=== PATIENT | female | born 1955 | race Caucasian/White ===

== ENCOUNTER 2017-09-11 17:26 | Inpatient (IN) | payer MEDICARE ==
[~2017-09-11] VITALS: Ht 162.6 cm; Wt 65.3 kg
--- NOTE | 2017-09-11 17:30 | NUR ---
[id number] FROM HOME: WAS WANDERING IN LOBBY, Hx OF CVA. BS IN FIELD 84, NAD NOTED, VSS, RESP EVEN AND UNLABORED, PT PUT ON HOSPITAL GOWN AND MONITOR. AAOX2, WITH PERIODS OF CONFUSION, WAITING FOR MD EARLY
[2017-09-11 17:51] LABS: BASOPHILS % (AUTO) 0.6 % (0.0-2.0); EOSINOPHILS # (AUTO) 0.2 /CMM (0.0-0.7); EOSINOPHILS % (AUTO) 3.1 % (0.0-6.0); HEMATOCRIT 42 % (33-45); HEMOGLOBIN 14.1 g/dL (11.5-14.8); LYMPHOCYTES # (AUTO) 1.1 /CMM (0.8-4.8); LYMPHOCYTES % (AUTO) 15.8 % (20.0-44.0); MEAN CORPUSCULAR HEMOGLOBIN 33 PG (26.0-33.0); MEAN CORPUSCULAR HGB CONC 34 g/dl (31.0-36.0); MEAN CORPUSCULAR VOLUME 98 fL (82-100); MONOCYTES # (AUTO) 0.3 /CMM (0.1-1.30); MONOCYTES % (AUTO) 4.4 % (2.0-12.0); NEUTROPHILS # (AUTO) 5.4 /CMM (1.8-8.9); NEUTROPHILS % (AUTO) 76.1 % (43.0-81.0); PLATELET COUNT (AUTO) 280 /CMM (150-450); RDW COEFFICIENT OF VARIATION 12.1 (11.5-15.0); RED BLOOD CELL COUNT(AUTO) 4.24 MIL/uL (4.0-5.2)
[2017-09-11] MEDS ORDERED: IV NS 0.9% 1,000 ML BAG IV ONE (18:00)
[2017-09-11 18:01] LABS: CALCIUM, SERUM 9.9 mg/dL (8.5-10.1); CARBON DIOXIDE 28 mmol/L (21-32); CHLORIDE 104 mmol/L (98-107); CREATININE 0.9 mg/dL (0.6-1.3); GLUCOSE 84 mg/dL (74-106); POTASSIUM 4.5 mmol/L (3.5-5.1); SODIUM SERUM 138 mmol/L (136-145); UREA NITROGEN, BLOOD 14 mg/dL (7-18)
[2017-09-11 18:05] LABS: INR 0.89 (0.87-1.13); PROTHROMBIN TIME 9.3 SECS (9.5-12.7)
[2017-09-11 18:07] LABS: ALANINE AMINOTRANSFERASE 41 U/L (12-78); ALBUMIN 4.1 g/dL (3.4-5.0); ALCOHOL, BLOOD 8 mg/dL (0-0); ALKALINE PHOSPHATASE 85 U/L (46-116); ASPARTATE AMINOTRANSFERASE 36 U/L (15-37); BILIRUBIN,DIRECT 0.2 mg/dL (0.0-0.2); BILIRUBIN,TOTAL 1.1 mg/dL (0.2-1.0); TOTAL PROTEIN, SERUM 7.4 g/dL (6.4-8.2)
[2017-09-11 18:09] LABS: TROPONIN I < 0.017 ng/mL (0.00-0.056)
--- NOTE | 2017-09-11 18:23 | NUR ---
PT TO CTSCAN
[2017-09-11 18:55] LABS: APPEARANCE,URINE Clear (CLEAR); BILIRUBIN,URINE Negative (NEGATIVE); BLOOD, URINE Negative Ery/uL (NEGATIVE); COLOR,URINE Yellow (YELLOW); KETONES,URINE Trace (NEGATIVE); LEUKOCYTE ESTERASE ,URINE Small (NEGATIVE); NITRITE, URINE Negative (NEGATIVE); PROTEIN,URINE Negative (NEGATIVE); UGLUCOSE Negative (NEGATIVE)
[2017-09-11 19:09] LABS: BACTERIA,URINE Few /HPF (None Seen); RBC,URINE 0-2 /HPF (0-2); SQUAMOUS EPITHELIAL CELL,UR Few /HPF (None Seen)
--- NOTE | 2017-09-11 19:18 | NUR ---
RECEIVED REPORT FROM JAYDA VERA FOR [facility]. PT APPEARS COMFORTABLE PT NOTED AOX3 WITH PERIODS OF CONFUSION.
--- NOTE | 2017-09-11 19:22 | NUR ---
CALLED FOR PSYCH
--- NOTE | 2017-09-11 19:25 | NUR ---
PINKY ETA: 1 HOUR
--- NOTE | 2017-09-11 20:18 | NUR ---
PINKY AT BEDSIDE FOR EVAL.
--- NOTE | 2017-09-11 21:08 | NUR ---
PT ASSIGNED TO [facility] 210-B
--- NOTE | 2017-09-11 21:10 | NUR ---
IV removed. Catheter intact and site benign. Pressure and 4x4 applied to site. No bleeding noted.
--- NOTE | 2017-09-11 21:11 | NUR ---
REPORT GIVEN TO JAYDA PAULINO FOR [facility]-B
--- NOTE | 2017-09-11 21:15 | NUR ---
ADMITTED A 62 Y/O FEMALE, , SINGLE, FROM HOME, ON 5150 HOLD, BASED ON HOLD, PATIENT WAS WANDERING IN THE LOBBY, CONFUSED, DISORGANIZED AND DO NOT REMEMBER HER APARTMENT. PATIENT HAS HX. OF BIPOLAR DISORDER. PATIENT ADMITTING DX. OF PSYCHOSIS AND HX. OF CVA. PATIENT ARRIVED VIA WHEELCHAIR AND ASSISTED BY THE ER STAFF. UPON FACE TO FACE EVALUATION, PATIENT APPEARED ALERT AND ORIENTED X 2, WITH CONFUSIONS AND FORGETFULNESS. PATIENT CALM, COOPERATIVE, DISORGANIZED AND CONFUSED. PATIENTS IS FULL CODE, AMBULATORY WITH UNSTEADY GAIT, NO SOB, NO ACUTE DISTRESS, BREATHING EVEN AND UNLABORED, NO S/S OF PAIN AND DISCOMFORT, BELONGINGS INSPECTED AND PLACED ON SAFE. NOTIFIED DR. EDMOND OF THE ADMISSION AND DR. JODI IBRAHIM TO RECONCILE MEDICATION. WILL CONTINUE TO MONITOR [id number] FOR SAFETY
--- NOTE | 2017-09-11 21:20 | NUR ---
PT TRANSFERRED VIA WC
[2017-09-11] MEDS ORDERED: ACETAMINOPHEN 325 MG TABLET PO PRN (22:30)
[2017-09-11] MEDS ORDERED: MAGNESIUM HYDROXIDE 30 ML UDC PO PRN (22:30)
[2017-09-11] MEDS ORDERED: MAG HYDROX/AL HYDROX/SIMETH 30 ML UDC PO PRN (22:30)
[2017-09-11] MEDS ORDERED: TEMAZEPAM 7.5 MG CAPSULE ONE (23:20)
[2017-09-11] MEDS: TEMAZEPAM 7.5 MG CAPSULE PO PRN (23:27)
[2017-09-11] MEDS ORDERED: CLOP75TA2 (23:56)
[2017-09-11] MEDS ORDERED: TRET20CR35 (23:56)
[2017-09-11] MEDS ORDERED: ATOR80TA (23:56)
[2017-09-11] MEDS ORDERED: ACET1TAB23 (23:56)
[2017-09-11] MEDS ORDERED: LITH300C2 (23:56)
[2017-09-11] MEDS ORDERED: LITH300T (23:56)
[2017-09-11] MEDS ORDERED: TRAZ-144 (23:56)
[2017-09-12] MEDS ORDERED: NITR100C15 (00:02)
[2017-09-12] MEDS: NITROFURANTOIN/NITROFURAN MAC 100 MG CAPSULE PO SCH ×3 (00:30→17:06)
[2017-09-12] MEDS ORDERED: NITROFURANTOIN/NITROFURAN MAC 100 MG CAPSULE ONE (01:45)
[2017-09-12 02:55] VITALS: BP 123/66
--- NOTE | 2017-09-12 06:30 | NUR ---
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 HOGSHEAD STRIPPER AT BEDSIDE, RIK BARRETT AWARE. WILL ENDORSE TO NEXT SHIFT NURSE ACCORDINGLY.
[2017-09-12 08:00] VITALS: BP 123/76
[2017-09-12] MEDS: CLOPIDOGREL BISULFATE 75 MG TABLET PO SCH (09:13)
--- NOTE | 2017-09-12 11:38 | NUR ---
Initial Discharge Plan Patient resides at [address] [place], [place] [id number], and wishes to return upon discharged. Patient lives alone. Patient refused to discuss alternative placement, but stated that she would consider home health services. Patient will be provided with alcohol abuse treatment referrals and community resources. SW will work to secure a safe and proper discharge.
[2017-09-12] MEDS: risperiDONE 0.25 MG TABLET PO SCH ×2 (14:30→17:00)
[2017-09-12] MEDS: LITHIUM CARBONATE 150 MG CAPSULE PO SCH ×2 (15:54→21:47)
[2017-09-12 16:00] VITALS: BP 151/97
--- NOTE | 2017-09-12 17:10 | NUR ---
rn notes patient refused 1700 Risperidone 0.5 mg po as scheduled, offered x3, explained important of medication intake, but refused, charge nurse notified. continued monitoring.
[2017-09-12 20:00] VITALS: BP 125/81
[2017-09-12] MEDS: ATORVASTATIN 40 MG TABLET PO SCH (21:47)
[2017-09-12] MEDS: TEMAZEPAM 7.5 MG CAPSULE PO PRN (21:48)
--- NOTE | 2017-09-12 21:48 | NUR ---
GPS RN NOTES: PATIENT AWAKE ALERT AND ORIENTED X2. PATIENT COMPLAINED OF UNABLE TO SLEEP AND PATIENT IS REQUESTING SLEEPING PILL. VITAL SIGNS STABLE. RESTORIL 7.5MG PO GIVEN ORDERED. WILL CONTINUE TO MONITOR AND ASSESS PATIENT HOURS OF SLEEP.
[2017-09-13 07:37] LABS: CREATININE 0.7 mg/dL (0.6-1.3)
[2017-09-13 07:43] LABS: CHOLESTEROL 261 mg/dL (<200); HDL CHOLESTEROL 74 mg/dL (40-60); LDL 162 mg/dL (0-99); TRIGLYCERIDES 152 mg/dL (30-150)
[2017-09-13 08:00] VITALS: BP 145/91
[2017-09-13] MEDS: NITROFURANTOIN/NITROFURAN MAC 100 MG CAPSULE PO SCH ×2 (08:07→16:19)
[2017-09-13] MEDS: CLOPIDOGREL BISULFATE 75 MG TABLET PO SCH (08:08)
[2017-09-13] MEDS: LITHIUM CARBONATE 150 MG CAPSULE PO SCH ×2 (08:08→21:45)
[2017-09-13] MEDS: risperiDONE 0.25 MG TABLET PO SCH ×2 (08:09→16:19)
[2017-09-13 16:08] VITALS: BP 118/74
[2017-09-13 20:00] VITALS: BP 137/95
[2017-09-13] MEDS: ATORVASTATIN 40 MG TABLET PO SCH (21:45)
[2017-09-13] MEDS: TEMAZEPAM 7.5 MG CAPSULE PO PRN (21:46)
--- NOTE | 2017-09-13 22:30 | NUR ---
GPS/RN-PATIENT VERBALIZED INABILITY TO SLEEP,REQUESTED FOR RESTORIL 7.5 MG. ORDERED.
[2017-09-14] MEDS: clonazePAM 0.5 MG TABLET PO PRN (06:21)
[2017-09-14 08:00] VITALS: BP 139/77
[2017-09-14] MEDS: risperiDONE 0.25 MG TABLET PO SCH ×2 (09:04→16:33)
[2017-09-14] MEDS: CLOPIDOGREL BISULFATE 75 MG TABLET PO SCH (09:04)
[2017-09-14] MEDS: LITHIUM CARBONATE 150 MG CAPSULE PO SCH ×2 (09:04→22:51)
[2017-09-14] MEDS: NITROFURANTOIN/NITROFURAN MAC 100 MG CAPSULE PO SCH ×2 (09:04→16:32)
[2017-09-14 16:00] VITALS: BP 140/97
[2017-09-14 20:00] VITALS: BP 130/85
[2017-09-14] MEDS: ATORVASTATIN 40 MG TABLET PO SCH (22:52)
[2017-09-14] MEDS: TEMAZEPAM 7.5 MG CAPSULE PO PRN (22:53)
[2017-09-15] MEDS: clonazePAM 0.5 MG TABLET PO PRN ×2 (00:05→21:48)
--- NOTE | 2017-09-15 04:52 | NUR ---
GPS/RN-PATIENT IS ANXIOUS, KLONOPIN 0.25 MG. PO GIVEN ORDERED.
[2017-09-15 08:00] VITALS: BP 145/80
[2017-09-15] MEDS: risperiDONE 0.25 MG TABLET PO SCH ×2 (08:47→17:50)
[2017-09-15] MEDS: NITROFURANTOIN/NITROFURAN MAC 100 MG CAPSULE PO SCH ×2 (08:47→17:50)
[2017-09-15] MEDS: LITHIUM CARBONATE 150 MG CAPSULE PO SCH ×2 (08:47→21:47)
[2017-09-15] MEDS: CLOPIDOGREL BISULFATE 75 MG TABLET PO SCH (08:47)
[2017-09-15 15:40] VITALS: BP 134/96
[2017-09-15 20:53] VITALS: BP 138/99
[2017-09-15] MEDS: ATORVASTATIN 40 MG TABLET PO SCH (21:47)
[2017-09-15] MEDS: TEMAZEPAM 7.5 MG CAPSULE PO PRN (21:48)
--- NOTE | 2017-09-15 21:48 | NUR ---
GPS RN NOTES: PATIENT IN BED AWAKE, A/O X2. PATIENT IS ANXIOUS. PATIENT IS REQUESTING KLONOPIN. ENCOURAGED PATIENT TO VERBALIZE FEELINGS AND CONCERNS. VITAL SIGNS STABLE. KLONOPIN 0.25MG PO GIVEN ORDERED TOLERATED WELL. WILL CONTINUE TO MONITOR Q15MIN FOR SAFETY AND BEHAVIOR.
--- NOTE | 2017-09-15 21:48 | NUR ---
GPS RN NOTES: PATIENT IN BED AWAKE, ALERT AND ORIENTED X 2. PATIENT VERBALIZED UNABLE TO SLEEP . PATIENT V/S STABLE AT THIS TIME. RESTORIL 7.5MG PO GIVEN ORDERED, WELL TOLERATED. WILL CONTINUE TO MONITOR AND ASSESS PATIENT [id number] FOR SAFETY AND BEHAVIOR AND WILL MONITOR HOURS OF SLEEP.
[2017-09-15] MEDS ORDERED: clonazePAM 0.5 MG TABLET PO ONE (22:00)
--- NOTE | 2017-09-15 22:00 | NUR ---
GPS RN NOTES: PATIENT HAS A COMPLAINT OF NOT BEING ABLE TO SLEEP AND IS REQUESTING KLONOPIN AT THIS TIME. PATIENT VITAL SIGNS ARE STABLE. PAGED DR. GLORIA AND INFORMED HIM OF MY FINDINGS. DR GLORIA ORDERED KLONOPIN 0.5MG PO X ONE DOSE. ALL ORDERS NOTED AND CARRIED OUT. WILL CONTINUE TO MONITOR THIS PATIENT.
[2017-09-16] MEDS ORDERED: diphenhydrAMINE HCL 50 MG CAPSULE ONE (00:14)
--- NOTE | 2017-09-16 00:19 | NUR ---
GPS RN NOTES: PATIENT HAS A COMPLAINT OF NOT BEING ABLE TO SLEEP AND IS REQUESTING BENADRYL AT THIS TIME. PATIENT VITAL SIGNS ARE STABLE. PAGED JODI IBRAHIM DNP AND INFORMED HIM OF MY FINDINGS. SEGUNDO IBRAHIM ORDERED BENADRYL 50MG PO X ONE DOSE. ALL ORDERS NOTED AND CARRIED OUT. WILL CONTINUE TO MONITOR THIS PATIENT.
[2017-09-16] MEDS ORDERED: diphenhydrAMINE HCL 50 MG CAPSULE PO ONE (00:30)
[2017-09-16 08:00] VITALS: BP 136/95
[2017-09-16] MEDS: CLOPIDOGREL BISULFATE 75 MG TABLET PO SCH (08:09)
[2017-09-16] MEDS: risperiDONE 0.25 MG TABLET PO SCH ×2 (08:09→16:34)
[2017-09-16] MEDS: NITROFURANTOIN/NITROFURAN MAC 100 MG CAPSULE PO SCH ×2 (08:09→16:34)
[2017-09-16] MEDS: LITHIUM CARBONATE 150 MG CAPSULE PO SCH ×2 (08:09→21:12)
[2017-09-16] MEDS: busPIRone 5 MG TABLET PO SCH (16:34)
[2017-09-16 16:36] VITALS: BP 133/90
[2017-09-16 20:26] VITALS: BP 159/99
[2017-09-16] MEDS: TEMAZEPAM 7.5 MG CAPSULE PO PRN (21:11)
--- NOTE | 2017-09-16 21:11 | NUR ---
GPS RN NOTES: PATIENT A/O X2. PATIENT COMPLAINED UNABLE TO SLEEP. PATIENT IS REQUESTING FOR RESTORIL. V/S STABLE. RESTORIL 7.5MG PO GIVEN ORDERED. WILL CONTINUE TO MONITOR HOURS OF SLEEP AND WILL CONTINUE TO MONITOR FOR SAFETY AND BEHAVIOR [id number].
[2017-09-16] MEDS: ATORVASTATIN 40 MG TABLET PO SCH (21:12)
[2017-09-16] MEDS: clonazePAM 0.5 MG TABLET PO PRN (22:08)
--- NOTE | 2017-09-16 22:08 | NUR ---
GPS RN NOTES: PATIENT A/O X2. PATIENT IS ANXIOUS. PATIENT IS REQUESTING KLONOPIN. V/S STABLE AT THIS TIME. KLONOPIN 0.25MG PO GIVEN ORDERED. WILL CONTINUE TO MONITOR SAFETY AND BEHAVIOR [id number]
[2017-09-16] MEDS ORDERED: clonazePAM 0.5 MG TABLET PO ONE (23:00)
--- NOTE | 2017-09-16 23:00 | NUR ---
GPS RN NOTES: PATIENT HAS A COMPLAINT OF NOT BEING ABLE TO SLEEP AND IS REQUESTING KLONOPIN AT THIS TIME. PATIENT VITAL SIGNS ARE STABLE. PAGED DR. EDMOND AND INFORMED HIM OF MY FINDINGS. DR. EDMOND ORDERED KLONOPIN 0.5MG PO X ONE DOSE. ALL ORDERS NOTED AND CARRIED OUT. WILL CONTINUE TO MONITOR THIS PATIENT.
[2017-09-17 08:00] VITALS: BP 126/90
[2017-09-17] MEDS: CLOPIDOGREL BISULFATE 75 MG TABLET PO SCH (08:27)
[2017-09-17] MEDS: busPIRone 5 MG TABLET PO SCH ×3 (08:27→16:32)
[2017-09-17] MEDS: risperiDONE 0.25 MG TABLET PO SCH ×2 (08:27→16:32)
[2017-09-17] MEDS: LITHIUM CARBONATE 150 MG CAPSULE PO SCH ×2 (08:27→21:10)
[2017-09-17 15:46] VITALS: BP 147/96
[2017-09-17 20:13] VITALS: BP 140/90
[2017-09-17] MEDS: ATORVASTATIN 40 MG TABLET PO SCH (21:10)
[2017-09-17] MEDS: TEMAZEPAM 7.5 MG CAPSULE PO PRN (22:42)
[2017-09-18] MEDS: LITHIUM CARBONATE 150 MG CAPSULE PO SCH (08:16)
[2017-09-18] MEDS: CLOPIDOGREL BISULFATE 75 MG TABLET PO SCH (08:17)
[2017-09-18] MEDS: busPIRone 5 MG TABLET PO SCH ×2 (08:17→13:00)
[2017-09-18 08:20] VITALS: BP 146/89
[2017-09-18] MEDS: risperiDONE 0.25 MG TABLET PO SCH (08:21)
--- NOTE | 2017-09-18 08:34 | NUR ---
Discharge Note Patient will be discharged home to [address] [facility] [address] [id number], and will be transported via taxi. Patient has no family to notify. Patient is alert and oriented x4. Patient is ambulatory. Patient denies homicidal and suicidal ideation. Patient denies visual and auditory hallucinations. Patient has an appointment with her psychiatrist, Dr. Diaz Jose [address] [facility] [address], [place] [address] [phone] on October 04 at 12:00pm. Patient was encouraged to discuss her alcohol dependence with psychiatrist. Patient also has an appointment with her geological drafter, Dr. Ernestina Arellano [address] [facility] [address], [place] [address] [phone] on Saturday, September 25 at 12:15pm. Patient was encouraged to present at an Alcoholic Anonymous meeting at [facility] [address] [facility], [address] on 09/23/17 at 7:30pm.
--- NOTE | 2017-09-18 12:31 | NUR ---
GPS SHIPPING POINT INSPECTOR NOTE: [place] [address] [address] IN STABLE CONDITION NO S/S DISTRESS NOTED PT AMBULATORY SELF CARE, DENIES SUICIDAL AND HOMICIDAL IDEATIONS , PT INSTRUCTED TO SELF CARE AT HOME IN CASE OF EMERGENCY CALLED 911, FOLLOW UP WITH PSYCHIATRIST AND SEED MILL SUPERINTENDENT,COMPLY WITH MEDICATIONS.PT VSS STABLE , PT EXPLAIN MEDICATION MANAGEMENT, DR EDMOND AND DR OREILLY INFORMED , T.O. DC ORDERED PLACED .PT SKIN IS INTACT AND CLEAN , PT SIGN EXIT CARE AND DISCHARGE INSTRUCTIONS.ALL BELONGINGS RETURNED TO PT BELONGING LIST SIGN.
== END 2017-09-18 12:30 | disposition home or self-care (01) | DRG 885 ==
LOC: ER 17:27 → GPSOV2 21:29 → GPS 21:44
PROVIDERS: ADMIT Psychiatry & Neurology Psychiatry; ATTEND Internal Medicine
DX: F31.64 Bipolar disorder, current episode mixed, severe, with psychotic features (principal); F03.90 Unspecified dementia, unspecified severity, without behavioral disturbance, psychotic disturbance, mood disturbance, and anxiety; F23 Brief psychotic disorder; N39.0 Urinary tract infection, site not specified; E78.5 Hyperlipidemia, unspecified; F41.9 Anxiety disorder, unspecified; Z86.73 Personal history of transient ischemic attack (TIA), and cerebral infarction without residual deficits; I10 Essential (primary) hypertension; F29 Unspecified psychosis not due to a substance or known physiological condition; Z73.6 Limitation of activities due to disability
CPT/HCPCS: 36415; 70450-TC; 71010-TC; 80048-TC; 80061-TC; 80076-TC; 81000-TC; 82565-TC; 84484-TC; 85025-TC; 85730-TC; 87081-TC; 87086-TC; A4606; G0480; J7030; Q0163; Z7610

== ENCOUNTER 2020-08-06 20:39 | Inpatient (IN) | payer BC, MEDICARE ==
[~2020-08-06] VITALS: Ht 167.6 cm; Wt 57.2 kg
[~2020-08-06 20:39] MED LIST: ACET1TAB23; ATOR80TA; CLOP75TA15; LITH300C2; NITR100C15; TRAZ-252
--- NOTE | 2020-08-06 20:40 | NUR ---
PT BIBEMS C/O ALTERED MENTAL STATUS. PT FOUND LAYING ON THE COUCH BY FAMILY. UNKNOW LAST WELL TIME. PT AAOX1, VSS, RESPIRATIONS EVEN AND UNLABORED W/ NO ACUTE DISTRESS NOTED. PT CONNECTED TO THE SKYDIVING INSTRUCTOR AND POX.
[2020-08-06] MEDS ORDERED: IV NS 0.9% 1,000 ML BAG IV ONE ×2 (21:00→22:00)
[2020-08-06] MEDS ORDERED: LORAZEPAM INJ 2 MG/ML VIAL IV ONE (21:00)
[2020-08-06] MEDS ORDERED: LORAZEPAM INJ 2 MG/ML VIAL ONE (21:04)
--- NOTE | 2020-08-06 21:10 | NUR ---
Jessica orona in [facility] - 08/06/20 at 2218 by SARAH PT BACK FROM CT
--- NOTE | 2020-08-06 21:10 | NUR ---
BLOOD COLLECTED AND SENT TO LAB
--- NOTE | 2020-08-06 21:16 | NUR ---
URINE COLLECTED AND SENT TO LAB
--- NOTE | 2020-08-06 21:20 | NUR ---
PT BACK FROM CT
[2020-08-06 21:24] LABS: BASOPHILS % (AUTO) 0.3 % (0.0-2.0); HEMATOCRIT 53 % (33-45); HEMOGLOBIN 17.5 g/dL (11.5-14.8); LYMPHOCYTES # (AUTO) 1.1 /CMM (0.8-4.8); LYMPHOCYTES % (AUTO) 7.8 % (20.0-44.0); MEAN CORPUSCULAR HGB CONC 33 g/dl (31.0-36.0); MEAN CORPUSCULAR VOLUME 104 fL (82-100); MONOCYTES # (AUTO) 0.9 /CMM (0.1-1.30); MONOCYTES % (AUTO) 6.9 % (2.0-12.0); NEUTROPHILS # (AUTO) 11.7 /CMM (1.8-8.9); PLATELET COUNT (AUTO) 256 /CMM (150-450); RED BLOOD CELL COUNT(AUTO) 5.13 MIL/uL (4.0-5.2); WHITE BLOOD COUNT (AUTO) 13.7 K/uL (4.3-11.0)
[2020-08-06] MEDS ORDERED: ACETAMINOPHEN 650 MG/SUPP.RECT RC ONE ×2 (21:25→21:30)
--- NOTE | 2020-08-06 21:25 | NUR ---
CALLED LAB FOR COVID SWAB
--- NOTE | 2020-08-06 21:30 | NUR ---
COVID SWAB SENT TO LAB
[2020-08-06 21:33] LABS: APPEARANCE,URINE Slightly Cloudy (CLEAR); BILIRUBIN,URINE MODERATE (NEGATIVE); BLOOD, URINE Negative Ery/uL (NEGATIVE); KETONES,URINE Trace (NEGATIVE); LEUKOCYTE ESTERASE ,URINE Negative (NEGATIVE); NITRITE, URINE Negative (NEGATIVE); PROTEIN,URINE 100 mg/dl (NEGATIVE); UGLUCOSE Negative (NEGATIVE); UROBILINOGEN,URINE 0.2 EU/dL (0.2)
[2020-08-06 21:34] LABS: COLOR,URINE DARK YELLOW (YELLOW)
[2020-08-06 21:48] LABS: BACTERIA,URINE Moderate /HPF (None Seen); RBC,URINE 0-2 /HPF (0-2); SQUAMOUS EPITHELIAL CELL,UR Few /HPF (None Seen); URINE AMORPHOUS URATE Many /HPF (None Seen); WBC,URINE 0-2 /HPF (0-3)
[2020-08-06 21:52] LABS: ALANINE AMINOTRANSFERASE 33 U/L (12-78); ALBUMIN 4.1 g/dL (3.4-5.0); ALCOHOL, BLOOD < 3 mg/dL (0-0); ALKALINE PHOSPHATASE 94 U/L (46-116); ASPARTATE AMINOTRANSFERASE 28 U/L (15-37); BILIRUBIN,DIRECT 0.3 mg/dL (0.0-0.2); BILIRUBIN,TOTAL 1.5 mg/dL (0.2-1.0); CALCIUM, SERUM 9.9 mg/dL (8.5-10.1); CARBON DIOXIDE 23 mmol/L (21-32); CHLORIDE 120 mmol/L (98-107); CREATININE 2.4 mg/dL (0.6-1.3); GLUCOSE 182 mg/dL (74-106); POTASSIUM 3.7 mmol/L (3.5-5.1); TOTAL PROTEIN, SERUM 8.3 g/dL (6.4-8.2)
[2020-08-06 21:53] LABS: SALICYLATE 0.7 mg/dL (2.8-20.0)
[2020-08-06 21:54] LABS: ACETAMINOPHEN < 2 ug/ml (10-30); SODIUM SERUM 158 mmol/L (136-145); UREA NITROGEN, BLOOD 87 mg/dL (7-18)
[2020-08-06 22:00] LABS: THYROID STIMULATING HORMONE 0.578 uIU/mL (0.358-3.74)
[2020-08-06] MEDS ORDERED: PIPERACILLIN /TAZOBACTAM 3.375 G in IV D5W 50 ML IV ONE (22:00)
[2020-08-06] MEDS ORDERED: PIPERACILLIN /TAZOBACTAM 3.375 G VIAL IV ONE (22:05)
--- NOTE | 2020-08-06 23:55 | NUR ---
REPORT GIVEN TO JAYDA LALA FOR [facility]
[2020-08-06 23:56] LABS: SERUM AMMONIA 18 umol/L (11-32)
--- NOTE | 2020-08-07 | NUR ---
MOTION PICTURE CAMERA LENS TECHNICIAN ADMITTING NOTE: Received report from ER nurse, Pascale. Patient arrived in the unit at 0000 via gurney. Patient sleeping but slightly opens eyes when her name is called or when she is touched. Patient cannot keep her eyes open and goes back to sleep. Patient skin is intact with no wounds or discoloration. Patient breathing on 2L oxygen via nasal canula. Patient is breathing well, even and unlabored. Shows no signs of acute respiratory distress or SOB. Noted IV access on right forearm, 20 gauge, flushes well, patent, dressing intact and dry, no redness or infiltration. IV infusing .45%NS @ 125/mL/hr per MD order. Safety precaution is in place, bed is in the lowest level, alarm is on, bed is locked, and side rails x2 are up. Will continue to monitor.
[2020-08-07] MEDS ORDERED: IV 1/2NS 1000 ML 1,000 ML IV ONE (00:30)
[2020-08-07] MEDS ORDERED: ACETAMINOPHEN 325 MG TABLET PO PRN (00:30)
--- NOTE | 2020-08-07 00:38 | NUR ---
[facility] [phone]
--- NOTE | 2020-08-07 01:00 | NUR ---
RAILROAD WATCHMAN NOTE: Called patient's sister twice. Was not able to get her on the phone but left a voicemail. Awaiting a call back and will try again at 0600.
[2020-08-07 01:07] VITALS: BP 146/96
--- NOTE | 2020-08-07 01:55 | NUR ---
BOAT HOIST OPERATOR NOTE: Per ER nurse, Pascale, the patient's contact is her sister, Emma. Her phone number is [phone].
--- NOTE | 2020-08-07 03:15 | NUR ---
MOTOR VEHICLES INSPECTOR NOTE: Patient sister Emma called and provided patient history. She also provided a second number, home.
[2020-08-07] MEDS ORDERED: PIPERACILLIN /TAZOBACTAM 3.375 G VIAL IV ONE (03:55)
[2020-08-07 04:00] VITALS: BP 157/97
[2020-08-07] MEDS ORDERED: PIPERACILLIN /TAZOBACTAM 3.375 G in IV D5W 50 ML IV ONE (05:00)
--- NOTE | 2020-08-07 05:48 | NUR ---
ARMATURE VARNISHER NOTE: Spoke to patient's sister, Emma. Emma stated patient is taking Amlodipine 2.5mg daily for hypertension. Will endorse to AM nurse.
--- NOTE | 2020-08-07 06:34 | NUR ---
CERTIFIED MASTER SAFE TECHNICIAN CLOSING NOTE: Patient in bed sleeping comfortably. Patient shows no signs of pain or discomfort at this time. Patient is breathing well on 2L oxygen via nasal canula. No SOB or respiratory distress noted. All patient needs were attended to and plan of care was carried out. Ensured patient safety. Safety precaution is in place, bed is in the lowest level, bed is locked, alarm is on, side rails x2 are up, and call light is within reach. Will endorse to next shift.
[2020-08-07 07:19] LABS: BASOPHILS % (AUTO) 0.3 % (0.0-2.0); EOSINOPHILS % (AUTO) 0.1 % (0.0-6.0); HEMATOCRIT 47 % (33-45); HEMOGLOBIN 15.4 g/dL (11.5-14.8); LYMPHOCYTES # (AUTO) 1.1 /CMM (0.8-4.8); LYMPHOCYTES % (AUTO) 8.2 % (20.0-44.0); MEAN CORPUSCULAR HGB CONC 33 g/dl (31.0-36.0); MEAN CORPUSCULAR VOLUME 104 fL (82-100); NEUTROPHILS # (AUTO) 10.8 /CMM (1.8-8.9); NEUTROPHILS % (AUTO) 83.4 % (43.0-81.0); PLATELET COUNT (AUTO) 166 /CMM (150-450); RED BLOOD CELL COUNT(AUTO) 4.56 MIL/uL (4.0-5.2)
[2020-08-07 08:00] VITALS: BP 150/87
[2020-08-07 08:50] LABS: ALBUMIN 3.5 g/dL (3.4-5.0); BILIRUBIN,TOTAL 1.8 mg/dL (0.2-1.0); CALCIUM, SERUM 8.8 mg/dL (8.5-10.1); CREATININE 1.6 mg/dL (0.6-1.3); POTASSIUM 3.1 mmol/L (3.5-5.1)
[2020-08-07] MEDS: CLOPIDOGREL BISULFATE 75 MG TABLET PO SCH (09:25)
[2020-08-07] MEDS: LITHIUM CARBONATE (300 MG CAP) 300 MG CAPSULE PO SCH ×2 (09:47→20:17)
[2020-08-07] MEDS ORDERED: METOPROLOL SUCCINATE 25 MG TAB.SR.24H PO SCH (10:00)
[2020-08-07] MEDS: IV D5W 1,000 ML IV PRN (10:18)
[2020-08-07 12:00] VITALS: BP 139/88
[2020-08-07] MEDS: ASPIRIN 81 MG TAB.CHEW PO SCH (12:00)
[2020-08-07] MEDS: PIPERACILLIN /TAZOBACTAM 2.25 G in IV D5W 50 ML IV SCH ×2 (13:24→20:17)
[2020-08-07 16:00] VITALS: BP 143/88
[2020-08-07 20:00] VITALS: BP 133/84
[2020-08-07] MEDS: ATORVASTATIN 10 MG TABLET PO SCH (21:57)
[2020-08-08] VITALS: BP 122/77
[2020-08-08] MEDS: IV D5W 1,000 ML IV PRN ×2 (00:06→13:19)
--- NOTE | 2020-08-08 00:31 | NUR ---
transfer of care notes: report given to ellen ramos for continuity of care. pt in bed, resting, remains on 2l oxygen via nc respirations even and unlabored. iv access patent and flushing well, infusing with d5w at 100ml/hr. no s/s of iv infiltration noted. tele monitoring sinus rhythm hr 62. bed bath provided by sid anaya. pt skin remains intact. on kci mattress, pt able to assist with turning and repositioning. all due meds administered. remains a/o x1 confused. assisted in feeding pt. able to drink 2boxes of orange juice (240ml) and ate vanilla pudding. safety precautions for fall remains engaged, call light in reach.
[2020-08-08 04:00] VITALS: BP 147/73
[2020-08-08] MEDS: PIPERACILLIN /TAZOBACTAM 2.25 G in IV D5W 50 ML IV SCH (04:32)
[2020-08-08 06:33] LABS: BASOPHILS % (AUTO) 0.1 % (0.0-2.0); HEMATOCRIT 43 % (33-45); HEMOGLOBIN 13.6 g/dL (11.5-14.8); LYMPHOCYTES # (AUTO) 1.1 /CMM (0.8-4.8); LYMPHOCYTES % (AUTO) 12.7 % (20.0-44.0); MEAN CORPUSCULAR HGB CONC 32 g/dl (31.0-36.0); MEAN CORPUSCULAR VOLUME 107 fL (82-100); MONOCYTES # (AUTO) 0.5 /CMM (0.1-1.30); MONOCYTES % (AUTO) 5.3 % (2.0-12.0); NEUTROPHILS # (AUTO) 6.9 /CMM (1.8-8.9); NEUTROPHILS % (AUTO) 78.9 % (43.0-81.0); PLATELET COUNT (AUTO) 133 /CMM (150-450); RED BLOOD CELL COUNT(AUTO) 4.05 MIL/uL (4.0-5.2); WHITE BLOOD COUNT (AUTO) 8.8 K/uL (4.3-11.0)
[2020-08-08 07:21] LABS: ALBUMIN 2.8 g/dL (3.4-5.0); BILIRUBIN,TOTAL 0.8 mg/dL (0.2-1.0); CALCIUM, SERUM 9.1 mg/dL (8.5-10.1); POTASSIUM 3.2 mmol/L (3.5-5.1)
--- NOTE | 2020-08-08 07:30 | NUR ---
RN OPENING NOTES PATIENT IN BED RESTING. A/OX2, TO NAME AND PLACE, REORIENTATION PROVIDED OF TIME. NOT IN ANY FORM OF DISTRESS. NO SOB. DENIED PAIN OR DISCOMFORT AT THIS TIME. IV ACCESS INTACT AND PATENT. SAFETY MEASURES IN PLACE. KEPT PATIENT SAFE AND COMFORTABLE. BED IN LOW/LOCKED POSITION, SIDERAILS UPX2,CALL LIGHT IN REACH. WILL CONT TO MONITOR ACCORDINGLY.
[2020-08-08] MEDS: CLOPIDOGREL BISULFATE 75 MG TABLET PO SCH (08:09)
[2020-08-08] MEDS: LITHIUM CARBONATE (300 MG CAP) 300 MG CAPSULE PO SCH ×2 (08:09→21:22)
[2020-08-08] MEDS: ASPIRIN 81 MG TAB.CHEW PO SCH (08:10)
[2020-08-08] MEDS ORDERED: POTASSIUM CHLORIDE 20 MEQ TAB.PRT.SR PO ONE (09:00)
[2020-08-08] MEDS: METOPROLOL SUCCINATE 25 MG TAB.SR.24H PO SCH (09:40)
[2020-08-08] MEDS: PIPERACILLIN /TAZOBACTAM 3.375 G in IV D5W 100 ML IV SCH ×2 (13:09→21:22)
[2020-08-08 16:00] VITALS: BP 111/70
--- NOTE | 2020-08-08 19:17 | NUR ---
RN CLOSING NOTES PATIENT IN STABLE CONDITION. ALL NEEDS ATTENDED AND PROVIDED. ALL DUE MEDS GIVEN ORDERED. KEPT PATIENT SKIN CLEAN AND DRY. TURNED AND REPOSITIONED EVERY 2HRS AND NEEDED. BED IN LOW/LOCKED POSITION, SIDRAILS UPX2, HOB ELEVATED, CALL LIGHT IN REACH. ENDORSED TO JAYDA AYALA ACCORDINGLY
--- NOTE | 2020-08-08 19:50 | NUR ---
DIRECT MAIL COORDINATOR NOTE: PATIENT RESTING IN BED, NO ACUTE DISTRESS NOTED. BREATHING EVEN AND UNLABORED, NO SOB NOTED. IV TO RIGHT WRIST IN PLACE, INFUSING D5W AT 100ML/HR. BED LOCKED AND IN LOWEST POSITION, CALL LIGHT IN REACH. WILL CONTINUE TO MONITOR.
[2020-08-08 20:30] VITALS: BP 124/88
[2020-08-08] MEDS: ATORVASTATIN 10 MG TABLET PO SCH (21:22)
--- NOTE | 2020-08-09 01:35 | NUR ---
MS RN NOTE: PATIENT MOVED TO BED 2 IN ROOM 114, BELONGINGS MOVED WITH PATIENT. BED LOCKED AND IN LOWEST POSITION, CALL LIGHT IN REACH. WILL CONTINUE TO MONITOR.
[2020-08-09] MEDS: IV D5W 1,000 ML IV PRN (03:26)
[2020-08-09] MEDS: PIPERACILLIN /TAZOBACTAM 3.375 G in IV D5W 100 ML IV SCH ×2 (04:13→12:00)
[2020-08-09 05:00] VITALS: BP 137/82
--- NOTE | 2020-08-09 06:10 | NUR ---
MS RN NOTE: PATIENT RESTING IN BED, NO ACUTE DISTRESS NOTED. BREATHING EVEN AND UNLABORED, NO SOB NOTED. IV TO RIGHT WRIST IN PLACE, INFUSING D5W AT 100ML/HR. BED LOCKED AND IN LOWEST POSITION, CALL LIGHT IN REACH. WILL ENDORSE TO DAY NURSE TO CONTINUE WITH PLAN OF CARE.
[2020-08-09 06:42] LABS: CALCIUM, SERUM 9.2 mg/dL (8.5-10.1); CREATININE 0.8 mg/dL (0.6-1.3); MAGNESIUM 3.1 mg/dL (1.8-2.4); POTASSIUM 3.6 mmol/L (3.5-5.1)
[2020-08-09 06:52] LABS: BASOPHILS % (AUTO) 0.1 % (0.0-2.0); EOSINOPHILS % (AUTO) 1.5 % (0.0-6.0); HEMATOCRIT 43 % (33-45); HEMOGLOBIN 14.2 g/dL (11.5-14.8); LYMPHOCYTES # (AUTO) 1.2 /CMM (0.8-4.8); LYMPHOCYTES % (AUTO) 13.8 % (20.0-44.0); MEAN CORPUSCULAR HGB CONC 33 g/dl (31.0-36.0); MEAN CORPUSCULAR VOLUME 102 fL (82-100); MONOCYTES # (AUTO) 0.3 /CMM (0.1-1.30); MONOCYTES % (AUTO) 3.9 % (2.0-12.0); NEUTROPHILS # (AUTO) 6.8 /CMM (1.8-8.9); NEUTROPHILS % (AUTO) 80.7 % (43.0-81.0); PLATELET COUNT (AUTO) 133 /CMM (150-450); WHITE BLOOD COUNT (AUTO) 8.4 K/uL (4.3-11.0)
--- NOTE | 2020-08-09 07:30 | NUR ---
RECEIVED PATIENT IN BED. NO ACUTE DISTRESS NOTED. PATIENT ALERT & ORIENTED X1-2. PATIENT ON 2L OXYGEN SATURATING WELL. PATIENT RIGHT WRIST IV ACCESS INTACT, PATENT, FLUSHED WELL. PATIENT SAFETY MEASURES MAINTAINED. CALL LIGHT WITHIN REACH. WILL CONTINUE TO MONITOR.
[2020-08-09 08:00] VITALS: BP 144/56
[2020-08-09] MEDS: CLOPIDOGREL BISULFATE 75 MG TABLET PO SCH (08:14)
[2020-08-09] MEDS: LITHIUM CARBONATE (300 MG CAP) 300 MG CAPSULE PO SCH (08:14)
[2020-08-09] MEDS: ASPIRIN 81 MG TAB.CHEW PO SCH (08:14)
[2020-08-09] MEDS ORDERED: AMOX-430 PO (09:07)
[2020-08-09 09:25] VITALS: BP 144/56
[2020-08-09] MEDS: METOPROLOL SUCCINATE 25 MG TAB.SR.24H PO SCH (09:25)
[2020-08-09] MEDS ORDERED: INFLUENZA VACCINE 2020-21 0.5 ML DISP.SYRIN IM ONE (13:00)
--- NOTE | 2020-08-09 13:51 | NUR ---
GAVE REPORT TO ZAK Louis LVN FROM [facility] REGARDING CONTINUITY OF CARE DUE TO DISCHARGE ORDER
--- NOTE | 2020-08-09 14:51 | NUR ---
PATIENT DISCHARGED IN STABLE CONDITION. TRANSPORT STATED THEY'RE HERE FOR MS. KOHLI HUNTER AND TRANSPORTING HER TO [facility] (CORRECT INFORMATION). PATIENT RIGHT FOREARM IV ACCESS INTACT, FLUSHED WELL, KEPT BECAUSE DISCHARGE TO SNF AND CONTINUING IV MEDS.
== END 2020-08-09 15:25 | DRG 177 ==
LOC: ER 20:54 → TELE1 23:45 → MEDSG1 08-08 23:01
PROVIDERS: ADMIT Internal Medicine; ATTEND Internal Medicine
DX: J69.0 Pneumonitis due to inhalation of food and vomit (principal); G93.41 Metabolic encephalopathy; N17.9 Acute kidney failure, unspecified; E87.0 Hyperosmolality and hypernatremia; E87.2 Acidosis; E86.0 Dehydration; Z86.73 Personal history of transient ischemic attack (TIA), and cerebral infarction without residual deficits; Z79.02 Long term (current) use of antithrombotics/antiplatelets; Z79.899 Other long term (current) drug therapy; I10 Essential (primary) hypertension; E78.5 Hyperlipidemia, unspecified
CPT/HCPCS: 36415; 70450-TC; 70551-TC; 71045-TC; 72125-TC; 80048-TC; 80053-TC; 80076-TC; 80305; 81000-TC; 82140-TC; 82550-TC; 82553; 82962-TC; 83605-TC; 83735-TC; 84443-TC; 84484-TC; 85025-TC; 85730-TC; 87040-TC; 87081-TC; 87086-TC; 93307-TC; 97530-TC; C9803-CS; G0378; G0480; J2060; J2543; J3490; J7030; J7060; J7070; Q2036